=== PATIENT | female | born 1955 | race Caucasian/White ===

== ENCOUNTER 2024-02-04 14:13 | Outpatient (OUT) | payer SELFPAY | END 2024-02-04 14:14 | disposition home or self-care (01) | LOC: PST 14:14 | PROVIDERS: Visit Provider Ophthalmology | DX: Z01.818 Encounter for other preprocedural examination (principal); H25.811 Combined forms of age-related cataract, right eye ==

== ENCOUNTER 2024-02-06 07:27 | Day surgery (SDC) | payer MEDICARE, SELFPAY ==
--- NOTE | 2024-02-06 | OP_ITS ---
OPERATION DATE: 02/06/2024 SURGEON: Jesse Hernandez D.O. PREOPERATIVE DIAGNOSIS: Nuclear sclerotic cataract right eye. POSTOPERATIVE DIAGNOSIS: Nuclear sclerotic cataract right eye. PROCEDURE NAME: Cataract extraction with intraocular lens placement of the right eye. ANESTHESIA: Topical ESTIMATED BLOOD LOSS: Zero. COMPLICATIONS: None. PROCEDURE: The patient was brought to the Operating Room in supine position. After proper identification, the right eye was prepped and draped in a sterile ophthalmic fashion. A paracentesis created at the 11 o'clock position. Approximately 1 cc of unpreserved Xylocaine was injected into the anterior chamber followed by Amvisc Plus. Using a 2.6 mm Keratome blade, a clear corneal incision was created at the 9 o'clock limbus. A cystotome was then used to begin a curvilinear capsulorrhexis that was continued for 360 degrees with the Utrata forceps. BSS on a 26 gauge cannula was injected beneath the anterior capsule to hydrodissect as well as hydrodelineate the lens. After ensuring mobility, phacoemulsification was performed in a [id number]-type fashion. After all nuclear material had been removed from the eye, IA was introduced and all residual cortical material was cleaned up. Additional Amvisc Plus was injected into the posterior bag and a lens model MX60, 21.0 diopters was injected and dialed into position. After ensuring centration, IA was reintroduced into the anterior chamber and all residual Amvisc Plus was removed from the eye. BSS on a 30 gauge cannula was injected into the stroma of both the clear corneal incision as well as paracentesis to hydrate the wounds. Additional BSS was injected into the anterior chamber to pressurize the eye at approximately 20 to 22 mmHg by finger tension. 0.1 cc of antibiotic was injected into the anterior chamber and Weck-Tamika sponges were used to check the wounds to be watertight. One drop of apraclonidine and one drop of prednisolone acetate placed into the eye and a shield was placed over top. The patient was sent to the postoperative area in satisfactory condition to follow up the following day for postoperative care. RYLEE
--- NOTE | 2024-02-06 | HP_ITS ---
PREOPERATIVE HISTORY AND PHYSICAL ? Date:? 02/05/2024 ? HISTORY:? The patient is a 69-year-old white female with complaints of declining vision out of her right eye.? She believes the onset of this has been ongoing over the last several years.? She states having difficulty at night time while driving with headlights creating glare and halos.? She also notes that distant objects such as road signs are more difficult to see.? ? PAST OCULAR HISTORY:? Strabismus surgery in [address] Constantino.? ? PAST MEDICAL HISTORY:? Stroke, heart attack in 2000, hypertension, hyperlipidemia, GERD and cholecystectomy.. ? SOCIAL HISTORY:? Denies tobacco, alcohol or recreational drug abuse. ? SYSTEMIC MEDICATIONS:? Include rosuvastatin, ezetimibe, amlodipine, estradiol. ? ALLERGIES TO MEDICATIONS:? Aspirin. ? REVIEW OF SYSTEMS:? No pertinent positives.? PHYSICAL EXAM: ? GENERAL:? In general, she is awake, alert and oriented x3, well developed, well nourished, in no acute distress.? ? HEART:? Regular rate and rhythm. ? LUNGS:? Clear bilaterally. ? ABDOMEN:? Soft, non-tender, non-distended. ? EXTREMITIES:? No pitting edema. ? OPHTHALMIC EXAM:? Revealed a visual acuity of 20/60 in the right and 20/50 -2 in the left, glaring to 20/200 in the right, 20/100 in the left.? Pupils motility, muscle balance and confrontational visual louie within normal limits bilaterally.? Pressures are measured at 16 bilaterally.? Slit lamp exam revealed blepharitis with a severe decrease in tear film bilaterally.? Conjunctiva, cornea, anterior chamber and iris were within normal limits bilaterally.? Lens status demonstrated 2+ nuclear sclerosis with 2+ cortical changes and vacuoles bilaterally.? ? FUNDUS EXAM:? Revealed good view with good dilation bilaterally.? Optic discs, macula, vessels, periphery and vitreous were within normal limits bilaterally.? ? ASSESSMENT AND PLAN:? Visually significant cataract, right eye.? After the risks, benefits, and alternatives as well as expectations were delivered to the patient, she elected to go forward with cataract removal.? She understands the risks to include but not limited to infection, bleeding, loss of vision or loss of the eye itself.? Secondly, she understands that postoperatively she is likely to require spectacle correction for her best visual acuity.? Finally, a complete ophthalmic exam was performed and there was not determined to be any other source of vision decline other than that of cataract.? ? After understanding all risks as well as expectations, she elected to go forward with the procedure as listed above and will be doing so in the near future. RYLEE
[2024-02-06] MEDS: PHENYLEPHRINE HCL 2.5% OP SOL 40 DROP/2 ML BOTTLE OP ×4 (07:50→08:22)
[2024-02-06] MEDS: TROPICAMIDE 1% OP SOL 300 DROP/15 ML BOTTLE OP ×4 (07:50→08:23)
[2024-02-06] MEDS: CYCLOPENTOLATE HCL 1% OP SOL 40 DROP/2 ML BOTTLE OP ×4 (07:50→08:23)
[2024-02-06] MEDS: DIAZEPAM 5 MG TABLET PO (07:55)
[2024-02-06] MEDS: BESIFLOXACIN HCL 100 DROP DROPS.SUSP OP ×4 (07:55→08:23)
[2024-02-06 07:58] VITALS: BP 141/92; PULSE 82; TEMP 36.4; O2SAT 100
[2024-02-06] MEDS: BETADINE POVIDONE-IODINE 5% OP SOL 30 ML BOTTLE OP (09:25)
[2024-02-06] MEDS: PROPARACAINE HCL 0.5% 300 DROP/15 ML BOTTLE OP (09:25)
[2024-02-06] MEDS: LIDOCAINE 2% JELLY 10 ML TOPICAL (09:25)
[2024-02-06 09:35] VITALS: BP 140/88; PULSE 78; O2SAT 98
[2024-02-06 09:36] VITALS: BP 150/95; PULSE 77; O2SAT 99
[2024-02-06] MEDS: HYALURONATE SODIUM 16 MG/ML SYRINGE OP (09:37)
[2024-02-06] MEDS: APRACLONIDINE HCL 0.5% SOL 100 DROP/5 ML BOTTLE OP (09:37)
[2024-02-06] MEDS: LIDOCAINE HCL 1% PF 20 MG/2 ML VIAL INJ (09:38)
[2024-02-06] MEDS: PHENYLEPHRINE/KETOROLAC 1-0.3% ML VIAL 4 ML IRR (09:38)
[2024-02-06] MEDS: TETRACAINE HCL 0.5% OP SOL 80 DROP/4 ML BOTTLE OP (09:39)
[2024-02-06] MEDS: PREDNISOLONE ACETATE OP 1% SUSP 100 DROPS/5 ML 1 DROP OP (09:39)
[2024-02-06] MEDS: CEFUROXIME SODIUM 750 MG, 0.9 % SODIUM CHLORIDE 16.3 ML OP (09:40)
== END 2024-02-06 09:58 | disposition home or self-care (01) ==
LOC: SURGOUT 07:29
PROVIDERS: Visit Provider Ophthalmology
PROC: (CPT 66984; principal; 2024-02-06 08:50)
DX: H25.11 Age-related nuclear cataract, right eye (principal); I25.2 Old myocardial infarction; I10 Essential (primary) hypertension; E78.5 Hyperlipidemia, unspecified; K21.9 Gastro-esophageal reflux disease without esophagitis; Z90.49 Acquired absence of other specified parts of digestive tract; Z86.73 Personal history of transient ischemic attack (TIA), and cerebral infarction without residual deficits
CPT/HCPCS: 66984; J0697; V2630